=== PATIENT | female | born 1990 | race Two or more races ===

== ENCOUNTER → 2016-10-21 | Outpatient (CLI) | payer BC | LOC: FIMAGING 10:58 | PROVIDERS: ATTEND Emergency Medicine | DX: R10.9 Unspecified abdominal pain (principal); Z97.5 Presence of (intrauterine) contraceptive device ==

== ENCOUNTER → 2016-11-01 | Outpatient (CLI) | payer BC | LOC: BMCIMAGING 14:56 | PROVIDERS: ATTEND Family Medicine | DX: R10.31 Right lower quadrant pain (principal); K59.00 Constipation, unspecified; Z97.5 Presence of (intrauterine) contraceptive device ==

== ENCOUNTER → 2016-11-05 | Outpatient (CLI) | payer BC | LOC: FIMAGING 17:46 | PROVIDERS: ATTEND Internal Medicine | DX: N20.0 Calculus of kidney (principal) ==

== ENCOUNTER → 2018-03-14 | Outpatient (CLI) | payer OTHER | LOC: BMCIMAGING 15:41 | PROVIDERS: ATTEND Internal Medicine | DX: R07.89 Other chest pain (principal); J69.0 Pneumonitis due to inhalation of food and vomit ==

== ENCOUNTER → 2018-07-11 | Outpatient (CLI) | payer SELFPAY | LOC: BMCIMAGING 10:44 ==